=== PATIENT | female | born 1995 | race American Indian/Alaskan Native ===

== ENCOUNTER 2019-02-07 01:55 | Emergency (ER) | payer MEDICAID, OTHER ==
[2019-02-07 02:45] LABS: Basophils % (Auto) 0.2 % (0.0-1.8); Eosinophils % (Auto) 0.3 % (0.0-4.3); Hematocrit 41.2 % (30.3-42.9); Hemoglobin 13.7 gm/dl (10.1-14.3); Lymphocytes # (Auto) 1.7 K/mm3 (1.2-5.4); Lymphocytes % (Auto) 11.1 % (13.4-35.0); Mean Corpuscular HGB Conc 33 % (30-34); Mean Corpuscular Volume 87 fl (79-97); Monocytes # (Auto) 1.1 K/mm3 (0.0-0.8); Monocytes % (Auto) 6.9 % (0.0-7.3); Platelet Count 258 K/mm3 (140-440); Red Blood Count 4.77 M/mm3 (3.65-5.03); Red Cell Distribution Width 13.2 % (13.2-15.2)
[2019-02-07 03:04] LABS: BUN/Creatinine Ratio 17; Blood Urea Nitrogen 12 mg/dL (7-17); Hemolysis Index 22
[2019-02-07] MEDS ORDERED: ZOFRAN ODT PO ONE (03:57)
[2019-02-07] MEDS ORDERED: ZOFRAN IM ONE (05:18)
--- NOTE | 2019-02-07 05:18 | Emergency Department Report ---
<TERESA BALDWIN - Last Filed: 02/07/19 05:10> ED HPI - General Chief complaint: Nausea/Vomiting/Diarrhea Stated complaint: PREG/VOMITING Time Seen by Provider: 02/07/19 03:49 Source: patient Mode of arrival: Ambulatory Limitations: No Limitations - History of Present Illness Initial comments: 23-year-old female comes in for complaint of nausea and vomiting during . Patient reports that she went to clinic last week and they reported they did not see a in her uterus. Ultrasound. Patient reports that they sent her home. Patient reports on Saturday is when she started having nausea and vomiting. Patient does admit to some mild abdominal pain. MD Complaint: abdominal pain Onset/Timin -: days(s) Location: pelvis Radiation: none Severity scale (0 -10): 3 Quality: cramping Consistency: intermittent Improves with: none Worsens with: none Associated symptoms: nausea/vomiting Vaginal bleeding: none :: Yes Last menstrual period: 12/15/18 Pre-álvaro care: none - Related Data : 1 Previous Rx's Medication Instructions Recorded Last Taken Type Clindamycin [Clindamycin CAP] 300 mg PO Q8H 10 Days #30 cap 02/07/19 Unknown Rx Ondansetron [Zofran Odt] 4 mg PO Q8HR PRN #20 tab.rapdis 02/07/19 Unknown Rx metroNIDAZOLE [metroNIDAZOLE 1 applicatio VG QHS 10 Days #1 tube 02/07/19 Unknown Rx VAGINAL 0.75% gel] Allergies Allergy/AdvReac Type Severity Reaction Status Date / Time No Known Allergies Allergy Verified 02/07/19 05:20 ED Review of Systems Comment: All other systems reviewed and negative Gastrointestinal: abdominal pain, nausea, vomiting ED Past Medical Hx - Past Medical History Previous Medical History?: Yes Hx Asthma: Yes - Surgical History Past Surgical History?: No - Social History Smoking Status: Never Smoker Substance Use Type: None - Medications Home Medications: Home Medications Medication Instructions Recorded Confirmed Last Taken Type Clindamycin [Clindamycin CAP] 300 mg PO Q8H 10 Days #30 cap 02/07/19 Unknown Rx Ondansetron [Zofran Odt] 4 mg PO Q8HR PRN #20 tab.rapdis 02/07/19 Unknown Rx metroNIDAZOLE [metroNIDAZOLE 1 applicatio VG QHS 10 Days #1 tube 02/07/19 Unknown Rx VAGINAL 0.75% gel] ED Physical Exam - General Limitations: No Limitations General appearance: alert, in no apparent distress - Head Head exam: Present: atraumatic, normocephalic - Eye Eye exam: Present: normal appearance - ENT ENT exam: Present: mucous membranes moist - Neck Neck exam: Present: normal inspection - Respiratory Respiratory exam: Present: normal lung sounds bilaterally. Absent: respiratory distress - Cardiovascular Cardiovascular Exam: Present: regular rate, normal rhythm. Absent: systolic murmur, diastolic murmur, rubs, gallop - GI/Abdominal GI/Abdominal exam: Present: soft, normal bowel sounds - Extremities Exam Extremities exam: Present: normal inspection - Back Exam Back exam: Present: normal inspection - Neurological Exam Neurological exam: Present: alert, oriented X3 - Psychiatric Psychiatric exam: Present: normal affect, normal mood - Skin Skin exam: Present: warm, dry, intact, normal color. Absent: rash ED Medical Decision Making - Lab Data Result diagrams: 02/07/19 02:28 02/07/19 02:28 - Medical Decision Making 23-year-old female presents to the emergency room reporting she is and complains of nausea vomiting. Patient also complains of mild abdominal cramping. Patient reports that she does not want to continue this . HCG + 35,000 Ultrasounds pending. Zofran was ordered to be given to patient for nausea and vomiting. ED Disposition Clinical Impression: Abdominal pain during intrauterine , Nausea and vomiting during Disposition: DC-01 TO HOME OR SELFCARE Condition: Stable Instructions: (ED), Acute Nausea and Vomiting (ED) Prescriptions: metroNIDAZOLE [metroNIDAZOLE VAGINAL 0.75% gel] 1 applicatio VG QHS 10 Days #1 tube Clindamycin [Clindamycin CAP] 300 mg PO Q8H 10 Days #30 cap Ondansetron [Zofran Odt] 4 mg PO Q8HR PRN #20 tab.rapdis PRN Reason: Nausea And Vomiting Referrals: LUPE MOURA MD [Staff Physician] - 3-5 Days Forms: Work/School Release Form(ED) <RUSS CANDELARIA - Last Filed: 02/07/19 07:41> ED Review of Systems ROS: Stated complaint: PREG/VOMITING Other details as noted in HPI ED Course Vital Signs 02/07/19 01:59 Temperature 98.3 F Pulse Rate 82 Respiratory 18 Rate Blood Pressure 125/88 O2 Sat by Pulse 100 Oximetry ED Medical Decision Making - Lab Data Result diagrams: 02/07/19 02:28 02/07/19 02:28 Labs 02/07/19 02/07/19 02/07/19 02:28 02:28 02:28 WBC 15.3 H RBC 4.77 Hgb 13.7 Hct 41.2 MCV 87 MCH 29 MCHC 33 RDW 13.2 Plt Count 258 Lymph % (Auto) 11.1 L [place]ison % (Auto) 6.9 Eos % (Auto) 0.3 Baso % (Auto) 0.2 Lymph # 1.7 Addison # 1.1 H Eos # 0.0 Baso # 0.0 Seg Neutrophils % 81.5 H Seg Neutrophils # 12.5 H Sodium 136 L Potassium 3.6 Chloride 98.0 Carbon Dioxide 22 Anion Gap 20 BUN 12 Creatinine 0.7 Estimated GFR > 60 BUN/Creatinine Ratio 17 Glucose 89 Calcium 10.0 HCG, Quant 58365 H Urine Color Urine Turbidity Urine pH Ur Specific [place] Urine Protein Urine Glucose (UA) Urine Ketones Urine Blood Urine Nitrite Urine Bilirubin Urine Urobilinogen Ur Leukocyte Esterase Urine WBC (Auto) Urine RBC (Auto) U Epithel Cells (Auto) Hyaline Casts Urine Mucus 02/07/19 07:04 WBC RBC Hgb Hct MCV MCH MCHC RDW Plt Count Lymph % (Auto) [place] % (Auto) Eos % (Auto) Baso % (Auto) Lymph # [place] # Eos # Baso # Seg Neutrophils % Seg Neutrophils # Sodium Potassium Chloride Carbon Dioxide Anion Gap BUN Creatinine Estimated GFR BUN/Creatinine Ratio Glucose Calcium HCG, Quant Urine Color Yellow Urine Turbidity Slightly-cloudy Urine pH 6.0 Ur Specific [place] 1.034 H Urine Protein 30 mg/dl Urine Glucose (UA) Neg Urine Ketones 80 Urine Blood Neg Urine Nitrite Neg Urine Bilirubin Neg Urine Urobilinogen 4.0 Ur Leukocyte Esterase Tr Urine WBC (Auto) 1.0 Urine RBC (Auto) 3.0 U Epithel Cells (Auto) 15.0 H Hyaline Casts 8 Urine Mucus 3+ - Radiology Data Radiology results: report reviewed, image reviewed Ordering Physician: YOUNG PRADO DO Date of Service: 02/07/19 Procedure(s): US OB transvaginal Accession Number(s): [id number] cc: YOUNG PRADO DO PROCEDURE: US OB TRANSVAGINAL TECHNIQUE: Real-time transabdominal and transvaginal sonography of the uterus, placenta, amniotic fluid, adnexa, and fetus was performed with image documentation. Measurements were obtained to determine age/size. M-mode Doppler was used to document heartbeat. ADDITIONAL GESTATION: None. HISTORY: abdomunal pain COMPARISONS: None . FINDINGS: CRL: 3 mm, which corresponds to a gestational age of: 5 weeks, 6 days. Yolk Sac: Appropriate for gestational age. . Embryonic Cardiac Activity: 109 bpm . Gestational Sac: Size and shape are appropriate for gestational age Placenta: Normal Amniotic fluid: Appropriate for gestational age. Cervix: Normal. Right Ovary: There is a large dominant cyst on the right ovary measuring 38 mm . Left Ovary: Normal . Estimated delivery date: 10/04/2019 . Uterus and adnexa: Normal. IMPRESSION: Single live intrauterine gestation at approximately 5 weeks 6 days . EDC by US 10/04/2019 . This document is electronically signed by Dalila Phan DO., February 07 2019 06:01:18 AM ET Transcribed By: [facility] Dictated By: DALILA PHAN MD Electronically Authenticated By: DALILA PHAN MD Signed Date/Time: 02/07/19 0603 DD/ 0508 TD/TT: 02/07/19 0509 Critical care attestation.: If time is entered above; I have spent that time in minutes in the direct care of this critically ill patient, excluding procedure time. ED Disposition Is pt being admited?: No Does the pt Need Aspirin: No Time of Disposition: 07:41
[2019-02-07] MEDS ORDERED: NACL 0.9% 1000 ML 1,000 ML IV ONE (05:21)
[2019-02-07] MEDS ORDERED: ZOFRAN IV ONE (05:21)
[2019-02-07] MEDS ORDERED: ZOFRAN ONE (05:22)
[2019-02-07] MEDS ORDERED: NACL 0.9% 1000 ML 1,000 ML ONE (05:24)
--- NOTE | 2019-02-07 06:02 | Ultrasound Report ---
PROCEDURE: US OB <= 14 WEEKS FETUS TECHNIQUE: Real-time transabdominal and transvaginal sonography of the uterus, placenta, amniotic fl uid, adnexa, and fetus was performed with image documentation. Measurements were obtained to determin e age/size. M-mode Doppler was used to document heartbeat. ADDITIONAL GESTATION: None. HISTORY: abdomunal pain COMPARISONS: None . FINDINGS: CRL: 3 mm, which corresponds to a gestational age of: 5 weeks, 6 days. Yolk Sac: Appropriate for gestational age. . Embryonic Cardiac Activity: 109 bpm . Gestational Sac: Size and shape are appropriate for gestational age Placenta: Normal Amniotic fluid: Appropriate for gestational age. Cervix: Normal. Right Ovary: There is a large dominant cyst on the right ovary measuring 38 mm . Left Ovary: Normal . Estimated delivery date: 10/04/2019 . Uterus and adnexa: Normal. IMPRESSION: Single live intrauterine gestation at approximately 5 weeks 6 days . EDC by US 0 . This document is electronically signed by Dalila Phan DO., February 07 2019 06:00:43 AM ET
[2019-02-07 07:25] LABS: Bilirubin,Urine NEG (Negative); Blood,Urine NEG (Negative); Color,Urine Yellow (Yellow); Hyaline Casts,Urine 8 /LPF; Mucus,Urine 3+ /HPF
[2019-02-07 07:55] VITALS: BP 115/69
== END 2019-02-07 07:55 | disposition home or self-care (01) ==
LOC: ED 01:55
DX: O21.8 Other vomiting complicating pregnancy (principal); O99.511 Diseases of the respiratory system complicating pregnancy, first trimester; J45.909 Unspecified asthma, uncomplicated; Z79.899 Other long term (current) drug therapy; Z3A.01 Less than 8 weeks gestation of pregnancy
CPT/HCPCS: 36415; 76801; 76817; 80048; 81001; 84702; 85025; 87210; 87591; 96361; 96374; 99284; J2405; J7030

== ENCOUNTER 2019-07-21 08:46 | Outpatient (CLI) | payer MEDICAID | END 2019-07-21 11:45 | disposition home or self-care (01) | LOC: LAB 08:46 → TRG 08:46 | PROVIDERS: ATTEND Obstetrics & Gynecology | DX: O26.893 Other specified pregnancy related conditions, third trimester (principal); Z3A.29 29 weeks gestation of pregnancy; Z67.41 Type O blood, Rh negative | CPT/HCPCS: 86850; 86900; 86901; 96372; J2790 ==